=== PATIENT | male | born 1965 | race Caucasian/White ===

== ENCOUNTER 2017-10-25 12:42 | Emergency (ER) | payer MEDICAID ==
[~2017-10-25] VITALS: Ht 172.7 cm; Wt 86.2 kg
[2017-10-25] MEDS ORDERED: ZANTAC 7575 MG PO (13:45)
[2017-10-25] MEDS ORDERED: SYNTHROID75 MCG PO (13:46)
[2017-10-25] MEDS ORDERED: ELIQUIS2.5 MG PO (13:46)
[2017-10-25] MEDS ORDERED: ANUSOL-HC25 MG PR (14:34)
[2017-10-25] MEDS ORDERED: XANAX0.5 MG PO (14:34)
== END 2017-10-25 14:44 | disposition home or self-care (01) ==
LOC: ED 12:42
DX: K64.8 Other hemorrhoids (principal); F06.4 Anxiety disorder due to known physiological condition; E03.9 Hypothyroidism, unspecified; Z79.899 Other long term (current) drug therapy
CPT/HCPCS: 85025; 99283

== ENCOUNTER 2017-10-28 12:24 | Emergency (ER) | payer MEDICAID ==
[~2017-10-28] VITALS: Ht 172.7 cm; Wt 86.2 kg
[~2017-10-28 12:24] MED LIST: ANUSOL-HC25 MG PR; ELIQUIS2.5 MG PO; SYNTHROID75 MCG PO; XANAX0.5 MG PO; ZANTAC 7575 MG PO
== END 2017-10-28 12:37 | disposition home or self-care (01) ==
LOC: ED 12:24
DX: K62.5 Hemorrhage of anus and rectum (principal); Z76.0 Encounter for issue of repeat prescription